=== PATIENT | female | born 1995 | race African-American/Black ===

== ENCOUNTER 2017-08-11 15:10 | Emergency (ER) | payer MEDICAID, SELFPAY ==
[2017-08-11 16:25] LABS: Bilirubin Negative (Negative); Blood, Urine Negative (Negative); Glucose, Urine (Dipstick) Negative (Negative); Ketone, Urine Negative (Negative); Nitrite Negative (Negative); Protein, Urine (Dipstick) Negative (Neg-Trace); Urobilinogen 0.2 mg/dL (0.2-1.0)
[2017-08-11 16:27] LABS: Bacteria/HPF None Seen HPF (None Seen); Hyaline Casts/LPF 0-3 HYALINE CAST LPF (0-3 Hyaline); RBC/HPF 0-3 HPF (0-3); Squamous Epithelial 0-3 HPF (0-3)
[2017-08-11] MEDS ORDERED: cefTRIAXone\\ROCEPHIN 250 MG VIAL ONE (16:38)
[2017-08-11] MEDS ORDERED: Azithromycin 250 MG TAB ONE (16:38)
[2017-08-11] MEDS ORDERED: Lidocaine 1% PF 5 ML VIAL ONE (16:38)
== END 2017-08-11 17:06 | disposition home or self-care (01) ==
LOC: ERS 15:10
DX: N72 Inflammatory disease of cervix uteri (principal)
CPT/HCPCS: 81003; 81015; 81025; 87086; 87480; 87491; 87510; 87591; 87660; 96372; J0696; J2001

== ENCOUNTER 2017-09-01 00:54 | Emergency (ER) | payer MEDICAID, SELFPAY | END 2017-09-01 04:21 | disposition home or self-care (01) | LOC: ERS 00:54 | DX: J06.9 Acute upper respiratory infection, unspecified (principal) | CPT/HCPCS: 99283 ==

== ENCOUNTER 2018-01-04 23:01 | Emergency (ER) | payer MEDICAID, OTHER, SELFPAY ==
[2018-01-05 00:16] LABS: Bilirubin Negative (Negative); Blood, Urine Negative (Negative); Clarity CLEAR (Clear); Glucose, Urine (Dipstick) Negative (Negative); Leukocyte Moderate (Negative); Nitrite Negative (Negative); Protein, Urine (Dipstick) Negative (Neg-Trace); Specific Gravity, Urine 1.019 (1.002-1.036); Urobilinogen 0.2 mg/dL (0.2-1.0)
[2018-01-05 00:17] LABS: Bacteria/HPF None Seen HPF (None Seen); Hyaline Casts/LPF 0-3 HYALINE CAST LPF (0-3 Hyaline); RBC/HPF None Seen HPF (0-3); Squamous Epithelial 0-3 HPF (0-3); WBC/HPF 0-3 HPF (0-3)
[2018-01-05] MEDS ORDERED: Azithromycin 250 MG TAB ONE (00:25)
[2018-01-05] MEDS ORDERED: cefTRIAXone\\ROCEPHIN 250 MG VIAL ONE (00:25)
[2018-01-05] MEDS ORDERED: Lidocaine 1% PF 5 ML VIAL ONE (00:25)
[2018-01-06 22:05] LABS: Chlamydia by PCR Not Detected (NotDetected); GC by PCR Not Detected (NotDetected)
== END 2018-01-05 01:01 | disposition home or self-care (01) ==
LOC: ERS 23:01
DX: N72 Inflammatory disease of cervix uteri (principal); B37.3 Candidiasis of vulva and vagina
CPT/HCPCS: 51701; 81003; 81015; 87480; 87491; 87510; 87591; 87660; 96372; A4353; J0696; J2001

== ENCOUNTER 2020-05-09 09:11 | Emergency (ER) | payer BC, OTHER ==
[2020-05-09 18:28] LABS: SARS-CoV-2 MS2 Positive; SARS-CoV-2 N Gene Negative; SARS-CoV-2 S Gene Negative; SARS-CoV-2 by NAA Not Detected (NotDetected); SARS-CoV-2 orf1ab Negative
== END 2020-05-09 09:40 | disposition home or self-care (01) ==
LOC: ERS 09:11
DX: R51 Headache (principal); Z20.828 Contact with and (suspected) exposure to other viral communicable diseases
CPT/HCPCS: 87635; 99284; U0003

== ENCOUNTER 2022-09-05 09:00 | Emergency (ER) | payer BC, SELFPAY | END 2022-09-05 10:08 | disposition home or self-care (01) | LOC: ERS 09:00 | DX: M25.521 Pain in right elbow (principal) ==

== ENCOUNTER 2023-07-31 16:37 | Emergency (ER) | payer BC, OTHER ==
[2023-07-31 18:37] LABS: SARS-CoV-2 NAA Rapid Test Not Detected (NotDetected)
[2023-07-31] MEDS ORDERED: Acetaminophen 500 MG TAB ONE ×2 (18:37→18:42)
== END 2023-07-31 19:21 | disposition home or self-care (01) ==
LOC: ERS 16:37
DX: J10.1 Influenza due to other identified influenza virus with other respiratory manifestations (principal); Z20.822 Contact with and (suspected) exposure to COVID-19
CPT/HCPCS: 71045; 93005